=== PATIENT | female | born 1955 | race Caucasian/White ===

== ENCOUNTER → 2017-11-25 | Outpatient (CLI) | payer SELFPAY | LOC: LAB 09:17 → LAB SHORT 09:17 | PROVIDERS: Nurse Practitioner Family | DX: Z01.419 Encounter for gynecological examination (general) (routine) without abnormal findings (principal) | CPT/HCPCS: 87624; G0145 ==

== ENCOUNTER → 2018-10-12 | Outpatient (CLI) | payer OTHER | LOC: LAB SHORT 19:42 → LAB 19:42 | PROVIDERS: Nurse Practitioner Family | DX: Z01.419 Encounter for gynecological examination (general) (routine) without abnormal findings (principal) | CPT/HCPCS: G0145 ==

== ENCOUNTER → 2019-11-16 | Outpatient (CLI) | payer OTHER | LOC: LAB SHORT 11:17 → LAB 11:17 | DX: D36.10 Benign neoplasm of peripheral nerves and autonomic nervous system, unspecified (principal) | CPT/HCPCS: 88305 ==

== ENCOUNTER 2020-01-11 06:39 | Day surgery (SDC) | payer OTHER ==
[~2020-01-11] VITALS: Ht 177.8 cm; Wt 81.6 kg
[~2020-01-11 06:39] MED LIST: Prinivil10 MG
== END 2020-01-11 09:30 | disposition home or self-care (01) ==
LOC: ORSCSDS 06:39
PROVIDERS: Surgery
PROC: 0DBM8ZZ Excision of Descending Colon, Via Natural or Artificial Opening Endoscopic (ICD-10-PCS; principal; 2020-01-11 08:30)
PROC: 0DBH8ZZ Excision of Cecum, Via Natural or Artificial Opening Endoscopic (ICD-10-PCS; principal; 2020-01-11 08:30)
DX: Z12.11 Encounter for screening for malignant neoplasm of colon (principal); D12.0 Benign neoplasm of cecum; D12.4 Benign neoplasm of descending colon; C95.90 Leukemia, unspecified not having achieved remission; E78.5 Hyperlipidemia, unspecified; Z79.899 Other long term (current) drug therapy
CPT/HCPCS: 88305; J2405; J2704; J7120

== ENCOUNTER → 2021-12-10 | Outpatient (CLI) | payer MEDICARE | END | disposition home or self-care (01) | LOC: LAB SHORT 11:07 → PLD 11:07 | DX: D48.5 Neoplasm of uncertain behavior of skin (principal) | CPT/HCPCS: 88305 ==